=== PATIENT | female | born 1990 ===

== ENCOUNTER 2024-09-07 06:41 | Outpatient (REF) | payer OTHER, SELFPAY ==
--- NOTE | ~2024-09-07 | US_ITS ---
EXAMINATION: US PELVIS TRANSABDOMINAL AND TRANSVAGINAL HISTORY: IRREGULAR MENSTRUATION COMPARISON: There are no prior studies for comparison. TECHNIQUE: Transabdominal and endovaginal real-time 2D burris-scale ultrasound was performed. Color Doppler was also performed. FINDINGS: Uterus: The uterus is normal in size, measuring 8.5 x 3.3 x 4.3 cm. Myometrium has a normal echotexture. No fibroids are identified. Endometrium: The endometrial stripe measures 9 mm in thickness. Right ovary: The right ovary measures 3.6 x 2.6 x 2.5 cm. The right ovary is normal in size and echotexture. Left ovary: The left ovary measures 3.0 x 2.3 x 2.3 cm. The left ovary is normal in size and echotexture. Color Doppler analysis of the bilateral ovarian arteries and veins is normal. Pelvic fluid: none. US/US pelvic and transvaginal IMPRESSION: Unremarkable pelvic ultrasound. Electronically signed by: Ignacio Byrd MD 09/07/2024 03:38 PM EDT
== END 2024-09-07 06:42 | disposition home or self-care (01) ==
LOC: HO.UMASIMG 06:41
PROVIDERS: Visit Provider Pediatrics
DX: N94.89 Other specified conditions associated with female genital organs and menstrual cycle (principal)
CPT/HCPCS: 76830; 76856

== ENCOUNTER → 2024-09-07 14:00 | Outpatient (BNV) | payer OTHER, SELFPAY | PROVIDERS: Visit Provider Radiology Diagnostic Radiology | DX: N92.6 Irregular menstruation, unspecified (principal) | CPT/HCPCS: 76830; 76856 ==